=== PATIENT | female | born 2005 | race Caucasian/White ===

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

== ENCOUNTER 2023-06-25 19:15 | Emergency (ER) | payer MEDICAID, SELFPAY ==
[2023-06-25 19:16] VITALS: BP 151/94; PULSE 104; RESP 15; TEMP 36.7; O2SAT 99; BMI 46.6
--- NOTE | 2023-06-25 20:08 | ED.VIS.LOWEX ---
HPI History of Present Illness Chief Complaint: Lower Extremity Injury Narrative Narrative: Patient complains of right small toe pain. Patient missed a step turned her right small toe under. No other injury. It hurts to bear weight. PFSH PFSH Home Medications NK 06/30/20 [History Last Taken Unknown] Allergy/AdvReac Type Severity Reaction Status Date / Time No Known Allergies Allergy Verified 06/25/23 19:20 Social History Smoking Status: Never smoker ROS ROS ED Cardiovascular Cardiovascular: Denies chest pain, palpitations or racing heartbeat Gastrointestinal Gastrointestinal: Denies nausea or vomiting Musculoskeletal Musculoskeletal: Reports arthralgias Integumentary Denies abscess, Abrasions or rash Neurologic Neurologic: Denies paresthesias or weakness Hematologic/Lymphatic Hematologic/Lymphatic: Denies easy bleeding or easy bruising EXAM Physical Exam Narrative Exam Narrative: Patient awake alert sitting in bed no acute distress. HEENT shows no sign of trauma. Cardiorespiratory: Easy unlabored breathing. Extremities show no deformity. But she does have ecchymosis and some mild swelling around her right small toe. No tenderness to proximal fifth metatarsal ankle leg or knee. Skin: Ecchymosis but no break in the skin or laceration. No sign of infection. Const Vital Signs: 06/25/23 19:16 Temperature 98.0 F Temperature Source Temporal Pulse Rate 104 H Respiratory Rate 15 Blood Pressure 151/94 H Blood Pressure Mean 113 Pulse Ox 99 Oxygen Delivery Method Room Air MDM MDM MDM Narrative Medical decision making narrative: Plan depend interpretation the patient's three-view x-ray of her right foot shows no fracture and final reading is similar. Patient can use Tylenol Motrin rest ice and elevation. Radiography Diagnostic Testing: Clinical Impression(s) from Imaging Studies Foot X-Ray 06/25/23 20:14 IMPRESSION: Normal x-ray examination of the foot. Electronically Signed: Alden Kirby MD at 20:26 EDT , Discharge Plan Triage Chief Complaint: Lower Extremity Injury ED Provider: Jn Vasquez Dx/Rx/DC Orders Clinical Impression: Contusion of small toe of right foot Instructions: ED Foot Contusion Prescriptions: No Action NK Primary Care Provider: Oma De Jesus Referrals: Oma De Jesus MD [Primary Care Provider] - 1 Week if not improving Care Physician,No Primary [Non-Staff] - Disposition Disposition: Home, Self Care
--- NOTE | 2023-06-25 20:14 | RAD_ITS ---
STUDY: X-RAY - RIGHT FOOT CLINICAL: Female, 17 years old. trauma TECHNIQUE: 3 view(s) of the foot. COMPARISON: None. FINDINGS: Normal talus, calcaneus, and tarsal bones. Normal visualized subtalar, talonavicular, calcaneocuboid, tarsal and tarsometatarsal articulations. Normal metatarsi. Normal metatarsophalangeal joint of the great toe. Normal tibial and fibular sesamoid bones. Normal interphalangeal joint of the great toe. Normal phalanges of the great toe. Normal second through fifth metatarsophalangeal joints. Normal interphalangeal joints and phalanges of the lesser toes. The soft tissue structures are unremarkable. RAD/Foot min 3 Views IMPRESSION: Normal x-ray examination of the foot. Electronically Signed: Alden Kirby MD at 20:26 EDT ,
== END 2023-06-25 21:49 | disposition home or self-care (01) ==
PROVIDERS: Emergency Provider Emergency Medicine; PCP Family Medicine; Visit Provider Emergency Medicine
DX: S90.121A Contusion of right lesser toe(s) without damage to nail, initial encounter (principal); X58.XXXA Exposure to other specified factors, initial encounter
CPT/HCPCS: 73630; 99282

== ENCOUNTER 2023-11-28 14:22 | Emergency (ER) | payer MEDICAID, SELFPAY ==
[2023-11-28 14:24] VITALS: BP 145/96; PULSE 79; RESP 14; TEMP 36.8; O2SAT 99; BMI 47.5
--- NOTE | 2023-11-28 16:03 | EX.ED.DYSGE1 ---
HPI History of Present Illness Chief Complaint: Dizziness Informant: patient Narrative Narrative: Patient presents with intermittent vertigo. Patient states she has had vertigo for 2 or so years. She was found to have multiple small meningioma. She followed up and saw neurosurgeon in [place]. But she has not seen them for a while. They stated there is no specific treatment. She is not having headaches. But she ran out of her meds for vertigo. She is now having more episodes. She has nothing to take. She is not actually having vertigo right now when I see her. She is not having headaches. No neurologic deficit. She has not fallen or hurt herself. No fevers or chills. She does not get nauseated with these but that is normal for her. The reason she is here really is to get a refill of her meds. She states she has not seen her doctor and cannot while in think she can call him for med [facility] Medical History (Updated 11/28/23 @ 16:[address] nJ Vasquez MD) Meningioma Vertigo Home Medications meclizine 25 mg tablet 25 mg PO 4X/DAY PRN PRN Dizziness #30 tabs 11/28/23 [Rx Last Taken Unknown] Allergy/AdvReac Type Severity Reaction Status Date / Time No Known Allergies Allergy Verified 11/28/23 14:23 Social History Smoking Status: Never smoker ROS [facility] ED Constitutional Constitutional ED: Denies chills or fever(s) Eyes Eyes: Denies blurry vision or change in vision ENT ENT ED: Denies ear pain, rhinorrhea or sore throat Cardiovascular Cardiovascular: Denies chest pain or palpitations Respiratory/Chest Respiratory/Chest: Denies cough Gastrointestinal Gastrointestinal: Denies nausea or vomiting Musculoskeletal Musculoskeletal: Denies myalgias Integumentary Denies rash Neurologic Neurologic: Reports other Details: See history of present illness. ; Denies headache(s), paresthesias or weakness Hematologic/Lymphatic Hematologic/Lymphatic: Denies easy bleeding or easy bruising Allergic/Immunologic Allergic/Immunologic ED: Denies urticaria EXAM Physical Exam Narrative Exam Narrative: CONSTITUTIONAL: Patient is nontoxic in appearance. The patient looks comfortable. Work of breathing looks normal. She is on her phone when I walked in the room. HEENT: No notable trauma. Mucous membranes moist. No sinus tenderness. No indication of pain with swallowing. EYES: No conjunctival injection. No proptosis. There is no nystagmus even with motion of her head. NECK:No JVD. No stridor. CARDIOVASCULAR: Regular rate. Regular rhythm. No notable murmur. No JVD. Distal pulses are normal RESPIRATORY: No respiratory distress. Breathing is unlabored. No wheezes. GASTROINTESTINAL: Not distended. Bowel sounds are normal. No tenderness. GENITOURINARY: No CVA tenderness. MUSCULOSKELETAL: Atraumatic. No peripheral edema. No cord. No tenderness NEUROLOGICAL: Patient is alert and appropriate. No focal deficit noted. Patient has normal gait coordination and balance. No vertigo at this time. SKIN: No noted rashes. No diaphoresis. PSYCHIATRIC: Patient is calm. Mood is appropriate. Const Vital Signs: 11/28/23 14:24 Temperature 98.2 F Temperature Source Temporal Pulse Rate 79 Respiratory Rate 14 Blood Pressure 145/96 H Blood Pressure Mean 112 Pulse Ox 99 Oxygen Delivery Method Room Air MDM MDM MDM Narrative Medical decision making narrative: Patient has a history of vertigo is having intermittent vertigo when she ran out of her meclizine. She is not having it now. I do not think this requires a CT even though she has a history of meningioma. She has no neurologic deficit or complaint. No symptoms. She has no headache. She has had follow-up. I do not think blood work is needed as she has not been vomiting. We will refill her meds. We discussed reasons to return. Discharge Plan Triage Chief Complaint: Dizziness ED Provider: Jn Vasquez Dx/Rx/DC Orders Clinical Impression: Vertigo, History of meningioma Instructions: ED BPV Vertigo Prescriptions: New meclizine 25 mg tablet 25 mg PO 4X/DAY PRN PRN (Reason: Dizziness) Qty: 30 1RF Primary Care Provider: Oma De Jesus Referrals: Oma De Jesus MD [Primary Care Provider] - 3-5 Days Disposition Disposition: Home, Self Care
--- OUTSIDE RECORDS SUMMARY | 2023-11-28 16:33 | XMS RPT_ITS | CCD ---
Author Name Unknown Address [address] [place] [address] Organization [facility] Care Team Providers Care Ski Lift Attendant Name Role Phone Oma Patel Primary Care Provider OMA PATEL MD Primary Care Physician CANDIS MALDONADO MD Attending Unavailable AMANDA MARTINEZ, OMA Primary Care UnavailYUNG Dean Attending Unavailable SHANON ALVARADO Attending Unavailable JUAN M WRIGHT Referring Unavailable NONE, PCP Primary Care Unavailable SHANI ARELLANO Attending Unavailable JUAN M WRIGHT Attending Unavailable NONE, PCP Primary Care Unavailable Medications Current Medications Medication Drug Class(es) Dates Sig (Normalized) Sig (Original) amoxicillin 500 mg oral capsule (1 source) Penicillin-class Antibacterial Start: 07-15-2019 End: 07-22-2019 take 1 capsule by mouth twice daily amoxicillin (AMOXIL) 500 MG capsule Indications: Right otitis media with effusion Take 1 capsule by mouth 2 times daily for 7 days 14 capsule 0 07/15/2019 07/22/2019 Active naproxen 500 mg oral tablet (1 source) Nonsteroidal Anti-inflammatory Drug Start: 02-11-2022 End: 02-21-2022 take 1 tablet by mouth twice daily naproxen (NAPROSYN) 500 MG tablet Take 1 tablet by mouth 2 times daily for 10 days 20 tablet 0 02/11/2022 02/21/2022 Active Completed/Discontinued Medications Medication Drug Class(es) Dates Sig (Normalized) Sig (Original) 1 ml ketorolac tromethamine 30 mg/ml cartridge (1 source) Nonsteroidal Anti-inflammatory Drug, Cyclooxygenase Inhibitor Start: 02-11-2022 End: 02-11-2022 ketorolac (TORADOL) injection 30 mg ondansetron 4 mg disintegrating oral tablet (2 sources) Serotonin-3 Receptor Antagonist Start: 01-26-2020 End: 06-29-2020 take 1 tablet by mouth three times daily as needed for nausea ondansetron (ZOFRAN-ODT) 4 MG disintegrating tablet Take 1 tablet by mouth 3 times daily as needed for Nausea or Vomiting 21 tablet 0 01/26/2020 06/29/2020 Discontinued (LIST CLEANUP) Problems Active Problems Problem Classification Problem Date Documented Date Episodic/Chronic Nausea and vomiting (1 source) Nausea; Translations: [Nausea] Episodic Other connective tissue disease (1 source) Musculoskeletal pain; Translations: [Myalgia, other site] Episodic Other injuries and conditions due to external causes (1 source) Injury of head; Translations: [Injury of head, initial encounter] Episodic Other non-traumatic joint disorders (1 source) Chronic ankle pain; Translations: [Chronic pain of left ankle] Episodic Other upper respiratory infections (3 sources) Sore throat symptom; Translations: [Acute pharyngitis, unspecified] Onset: 01-24-2023 Episodic Spondylosis; intervertebral disc disorders; other back problems (1 source) Low back pain; Translations: [Lumbar back pain] Episodic Unclassified (1 source) Acute cough; Translations: [Acute cough] Onset: 01-24-2023 Past or Other Problems Problem Classification Problem Date Documented Da te Episodic/Chronic Conditions associated with dizziness or vertigo (2 sources) Dizziness and giddiness; Translations: [Dizziness and giddiness] Onset: 09-25-2022 Episodic Influenza (2 sources) Influenza due to other identified influenza virus with other respiratory manifestations; Translations: [Influenza due to other identified influenza virus with other respiratory manifestations] Onset: 10-18-2022 Episodic Open wounds of extremities (2 sources) Laceration without foreign body of left hand, initial encounter; Translations: [Laceration without foreign body of left hand, initial encounter] Onset: 10-02-2022 Episodic Other non-traumatic joint disorders (1 source) Anterior knee pain; Translations: [Right anterior knee pain] Episodic Unclassified (1 source) Acute cough; Translations: [Acute cough] Onset: 01-24-2023 Results Test Name Value Interpretation Reference Range Facil ity Vital Signs Date Time Vital Sign Value Performing Clinician Faci lity 02-11-2022 15:30-0400 Body height 165.1 cm Rosa Potter DO Work Phone: [facility] 02-11-2022 15:30-0400 Body mass index (BMI) [Percentile] Per age and sex 99.32 % Rosa Potter DO Work Phone: [facility] 02-11-2022 15:30-0400 Body mass index (BMI) [Ratio] 47.96 kg/m2 Rosa Potter DO Work Phone: [facility] 02-11-2022 15:30-0400 Body temperature 97.39 [degF] Rosa Potter DO Work Phone: [facility] 02-11-2022 15:30-0400 Body weight 130.73 kg Rosa Potter DO Work Phone: [facility] 02-11-2022 15:30-0400 Diastolic blood pressure 98 mm[Hg] Rosa Potter DO Work Phone: [facility] 02-11-2022 15:30-0400 Heart rate 85 /min Rosa Potter DO Work Phone: [facility] 02-11-2022 15:30-0400 Respiratory rate 16 /min Rosa Potter DO Work Phone: [facility] 02-11-2022 15:30-0400 SaO2% (BldA) [Mass fraction] 99 % Rosa Potter DO Work Phone: [facility] 02-11-2022 15:30-0400 Systolic blood pressure 150 mm[Hg] Rosa Potter DO Work Phone: [facility] 06-29-2020 09:10-0400 Body weight 123.6 kg [facility] , [place] 06-29-2020 09:07-0400 Body Temperature 98.49 [degF] [facility], [place] 06-29-2020 09:07-0400 BP Diastolic 79 mm[Hg] [facility] , [place] 06-29-2020 09:07-0400 BP Systolic 144 mm[Hg] [facility] [place] , [place] 06-29-2020 09:07-0400 Pulse (Heart Rate) 98 /min Shani Clark [facility], [place] 06-29-2020 09:07-0400 Pulse Oximetry 100 % Shani Clark [facility] , [place] 06-29-2020 09:07-0400 Respiratory Rate 20 /min Shani Clark [facility], [place] 09-17-2019 08:38-0400 BMI (Body Mass Index) 38.27 kg/m2 [facility] [place] 09-17-2019 08:38-0400 Body Temperature 98.01 [degF] Mathieu [facility], [place] 09-17-2019 08:38-0400 Body weight 104.33 kg Mathieu [facility], [place] 09-17-2019 08:38-0400 BP Diastolic 86 mm[Hg] [facility], [place] 09-17-2019 08:38-0400 BP Systolic 142 mm[Hg] [facility], [place] 09-17-2019 08:38-0400 Height 165.1 cm Mathieu [facility], [place] 09-17-2019 08:38-0400 Pulse (Heart Rate) 100 /min Mathieu Clark [facility], [place] 09-17-2019 08:38-0400 Pulse Oximetry 100 % Mathieu [facility], [place] 09-17-2019 08:38-0400 Respiratory Rate 16 /min [place], [place] Encounters Encounter Date Encounter Type Care Provider Facility Start: 01-24-2023 End: 01-25-2023 Emergency department patient visit JUAN M WRIGHT [facility] Start: 10-18-2022 End: 10-18-2022 Emergency department patient visit SHANI ARELLANO [facility] Start: 10-02-2022 End: 10-02-2022 Emergency department patient visit SHANON ALVARADO [facility] Start: 09-25-2022 End: 09-25-2022 Emergency department patient visit YUNG CIFUENTES [facility] Start: 08-29-2022 End: 08-30-2022 ambulatory CANDIS MALDONADO MD Facility:[facility] Start: 08-29-2022 End: 08-29-2022 Patient encounter procedure CANDIS MALDONADO MD [facility] Start: 02-11-2022 End: 02-11-2022 Emergency department patient visit Rosa Potter DO Work Phone: [facility] ED Procedures Date Procedure Procedure Detail Performing Clinician Start: 06-29-2020 Radex ankle complete minimum 3 views Shani Arellano Work Phone: Start: 01-26-2020 Urine test visual color cmprsn meths Oma Patel Work Phone: Start: 01-26-2020 Urnls dip stick/tabl et rgnt auto w/o microscopy Oma Patel Work Phone: Start: 01-26-2020 Assay of lipase Oma edwards Work Phone: Start: 01-26-2020 Blood count complete auto&auto difrntl wbc Oma Patel Work Phone: Start: 01-26-2020 Comprehensive metabo lic panel Oma Patel Work Phone: Start: 09-17-2019 Ct head/brain w/o co ntrast material Mathieu Peng Work Phone: Start: 07-17-2019 Radiologic examinati on knee 3 views Oma Patel Work Phone: Plan of Treatment Date Care Activity Detail Author Start: 06-24-2026 DTaP/Tdap/Td vaccine (7 - Td or Tdap) DTaP/Tdap/Td vaccine (7 - Td or Tdap) [facility] Start: 07-12-2022 Depression Screen Depression Screen [facility] Start: 09-28-2021 COVID-19 Vaccine (3 - Booster for Pfizer series) COVID-19 Vaccine (3 - Booster for Pfizer series) [facility] Start: 07-25-2021 Influenza vaccination Flu vaccine (# 1) [facility] Start: 07-25-2020 Influenza vaccination Flu vaccine (# 1) [place], [place] Start: 2019 Chlamydia screen Chlamydia screen [place], [place] Start: 2019 Meningococcal (ACWY) vaccine (1 - 2-dose series) [facility] Start: 2019 Screening for Chlamy damian trachomatis Chlamydia screen [facility] Start: 07-25-2019 Influenza vaccination Flu vaccine (# 1) [place], [place] Start: 2018 HIV screen HIV screen [place], [place] Start: 2018 HIV screening HIV screen [facility] Start: 2018 HPV vaccine (1 - Fem dinesh 3-dose series) HPV vaccine (1 - Female 3-dose series) [place] Start: 2016 Varicella Vaccine (1 of 2 - 13+ 2-dose series) Varicella Vaccine (1 of 2 - 13+ 2-dose series) [place] Start: 2014 HPV vaccine (1 - 2-d ose series) HPV vaccine (1 - 2-dose series) [place] Start: 2014 HPV vaccine (1 - Fem dinesh 2-dose series) HPV vaccine (1 - Female 2-dose series) [place] Start: 2014 Meningococcal (ACWY) Vaccine (1 - 2-dose series) Meningococcal (ACWY) Vaccine (1 - 2-dose series) [place] Start: 2010 DTaP/Tdap/Td vaccine (1 - Tdap) DTaP/Tdap/Td vaccine (1 - Tdap) [place] Start: 2004 Hepatitis A vaccine (1 of 2 - 2-dose series) Hepatitis A vaccine (1 of 2 - 2-dose series) [place] Start: 2004 Measles,Mumps,Rubell a (MMR) vaccine (1 of 2 - Standard series) Measles,Mumps,Rubella (MMR) vaccine (1 of 2 - Standard series) [place] Start: 2004 Varicella vaccine (1 of 2 - 2-dose childhood series) Varicella vaccine (1 of 2 - 2-dose childhood series) [place] Start: 2003 Polio vaccine (1 of 3 - 4-dose series) Polio vaccine (1 of 3 - 4-dose series) [place] Start: 2003 Polio vaccine 0-18 ( 1 of 3 - 4-dose series) Polio vaccine 0-18 (1 of 3 - 4-dose series) [place] Start: 2003 Hepatitis B Vaccine (1 of 3 - 3-dose primary series) Hepatitis B Vaccine (1 of 3 - 3-dose primary series) [place] Start: 2003 Hepatitis C screening [facility] C [facility] Immunizations Immunization Date Immunization Notes Care Provider Fa [facility] 04-07-2021 COVID-19, Pfizer Pur ple top, DILUTE for use, 12+ yrs, 30mcg/0.3mL dose Rosa Potter DO Work Phone: [facility] 06-24-2016 meningococcal vaccin e of unknown formulation and unknown serogroups Rosa Potter DO Work Phone: [facility] Work Phone: Payers Date Payer Category Payer Unknown [facility] xxxxxxxxxxxx 2017-Present [phone] [place] [id number] xxxxxxxxxxxx [id number] 2017 Unknown [id number] 2003 Unknown [id number] Social History Date Type Detail Facility Start: 09-29-2017 End: 09-17-2019 Tobacco smoking status NHIS Never smoker [facility] Start: 07-15-2019 End: 09-17-2019 Alcohol intake No [place], [place] Start: 2003 Sex Assigned At Not on file [place] Start: 01-26-2020 End: 02-11-2022 Alcohol intake Current [facility]-drinker of [facility] (finding[facility] Start: 09-29-2017 End: 01-26-2020 Tobacco use and exposure Never used [facility] Start: 02-01-2022 End: 02-11-2022 [facility] SARS-CoV-2 (event) [facility] smoking status No Smokin g Status Entered [facility] Sex Assigned At Female [facility] Hospital Discharge instructions 02-11-2022 InstructionsAttachments Note Date & Type Note Facility 02-11-2022 Hospital Discharg e instructions Rosa Potter, - 02/11/2022 Your examination is reassuring. Please take Naprosyn as prescribed. If you continue to have pain you can also take Tylenol. Please ice your lower back, stretch/use exercises. Please follow-up with your primary care physician. Return to the emergency department with any new or worsening symptoms as discussed, including peeing or pooping on yourself, decreased sensation in your groin or muscular weakness. The following attachments cannot be sent through Care Everywhere.Low Back Pain: Exercises (Uzbek)Lumbar Pain: Getting Back to Normal (Uzbek)documented in this encounter [facility] Work Phone: Evaluation + Plan note Note Date & Type Note Facility Evaluation + Plan note No data available for this section [facility] Evaluation note Note Date & Type Note Facility documented in this encounter [facility] Work Phone: Hospital Discharge instructions Note Date & Type Note Facility Hospital Discharge instructions No data available for this section [facility] Progress note Note Date & Type Note Facility Progress note No data available for this section [facility] Discharge Instructions * Instructions* Mathieu Peng, - 09/17/2019 Return if increasing pain problems or concerns. * Attachments The following attachments cannot be sent through Care Everywhere. * Acute Concussion: Pediatric (Uzbek) documented in this encounter* Instructions* Shani Arellano MD - 06/29/2020 Scott wrap or ankle lacer for comfort * Attachments The following attachments cannot be sent through Care Everywhere. * Joint Pain: Pediatric (Uzbek) documented in this encounter Assessments Diagnosis Injury of head, initial encounter- Primary Diagnosis Nausea Nausea alone Sore throat Acute pharyngitis Diagnosis Chronic pain of left ankle Diagnosis Right anterior knee pain Pain in joint, lower leg Advance Directives No Advanced Directives Records FoundDocuments on File Type Date Recorded Patient Registered Dental Assistant Rda Expl anation Advance Directives and Living Will Power of Placer Miner Documents on File Type Date Recorded Patient Registered Dental Assistant Rda Expl anation Advance Directives and Living Will Power of Placer Miner Documents on File Type Date Recorded Patient Registered Dental Assistant Rda Expl anation ACP-Advance Directive ACP-Power of Placer Miner Reason for Referral Status Reason Specialty Diagnoses / Procedures Referred By Contact Referred To Contact [facility] Specialty Services Required Orthopedic Surgery Diagnoses Chronic pain of left ankle Shani Arellano MD [facility] [place] [address] [facility] [address] [place] [address] Scheduling Instructions [facility] [place] [address] Summary Purpose Family History No Family History Records FoundNo Family History Records FoundNo Family History Records Found Additional Source Comments Reason for Visit (unrecogniz ed section and content) Reason Comments Ankle Pain Left, x2 months, no injury Reason Comments Back Pain Ordered Prescriptions (unrec ognized section and content) Scheduled Active and Recently Administ ered Medications (unrecognized section and content) Care Teams (unrecognized sec tion and content) INFORMATION SOURCE (unrecogn ized section and content) DATE CREATED AUTHOR AUTHOR'S ORGANIZ ATION 09/04/2022 [facility] DATE CREATED AUTHOR AUTHOR'S ORGANIZ ATION 01/25/2023 [facility] Care Team (unrecognized sect ion and content) Care Team Personnel Name: OMA PATEL MD Member Role: Primary Care Physician Address: Address: [address] [place] [address] [address] FOR RECORDS PERTAINING TO PATIENTS WHO ARE OR HAVE BEEN ENROLLED IN A CHEMICAL DEPENDENCY/SUBSTANCEABUSE PROGRAM, SOME INFORMATION MAY BE OMITTED. This clinical summary was aggregated from multiple sources. Caution should be exercised in using it in the provision of clinical care. This summary normalizes information from multiple sources, and as a consequence, information in this document may materially change the coding, format and clinical context of patient data. In addition, data may be omitted in some cases. CLINICAL DECISIONS SHOULD BE BASED ON THE PRIMARY CLINICAL RECORDS. [facility]. provides no warranty or guarantee of the accuracy or completeness of information in this document.
== END 2023-11-28 16:27 | disposition home or self-care (01) ==
LOC: ED 16:21
PROVIDERS: Emergency Provider Emergency Medicine; PCP Family Medicine; Visit Provider Emergency Medicine
DX: R42 Dizziness and giddiness (principal); D32.9 Benign neoplasm of meninges, unspecified
CPT/HCPCS: 99282